=== PATIENT | male | born 1955 | race American Indian/Alaskan Native ===

== ENCOUNTER 2017-07-23 13:28 | Outpatient (CLI) | payer BC ==
--- NOTE | 2017-07-23 14:51 | XRay Report ---
Right hip 2 views: History: Hip pain. Findings: Total hip replacement noted. The acetabular and the femoral component is anatomic and in alignment. No fracture or dislocation. Impression: Stable right hip arthroplasty.
== END 2017-07-23 13:29 | disposition home or self-care (01) ==
LOC: SPVIMAG 13:28
PROVIDERS: ATTEND Orthopaedic Surgery Sports Medicine
DX: M25.551 Pain in right hip (principal); Z96.641 Presence of right artificial hip joint